=== PATIENT | female | born 1960 | race Two or more races ===

== ENCOUNTER → 2020-03-11 | Day surgery (SDC) | payer OTHER | END | disposition home or self-care (01) | LOC: ADM 03-04 12:00 → AMB-ENDOS 06:00 → ADM 04-04 12:00 | PROVIDERS: ATTEND Colon & Rectal Surgery | DX: D12.3 Benign neoplasm of transverse colon (principal); K64.2 Third degree hemorrhoids; Z20.828 Contact with and (suspected) exposure to other viral communicable diseases ==

== ENCOUNTER 2021-10-05 11:30 | Outpatient (CLI) | payer OTHER | END 2021-10-05 12:00 | disposition home or self-care (01) | LOC: MRI 11:30 | DX: G95.9 Disease of spinal cord, unspecified (principal); S32.009A Unspecified fracture of unspecified lumbar vertebra, initial encounter for closed fracture | CPT/HCPCS: 72148 ==

== ENCOUNTER 2021-11-15 10:11 | Inpatient (IN) | payer OTHER ==
[~2021-11-15] VITALS: Ht 165.1 cm; Wt 66.7 kg
[2021-11-15] MEDS ORDERED: TOPROL XL50 M1 PO (11:05)
[2021-11-15] MEDS ORDERED: SYNTHROID50 MCG PO (11:05)
== END 2021-11-17 10:24 | disposition home or self-care (01) | DRG 742 ==
LOC: OB/GYN 11-16 05:46 → O/R 11-16 05:46 → SURG 11-16 11:15 → OB/GYN 11-16 15:23
PROVIDERS: Surgery; ADMIT Obstetrics & Gynecology Gynecologic Oncology; ATTEND Obstetrics & Gynecology Gynecologic Oncology
PROC: 0UT24ZZ Resection of Bilateral Ovaries, Percutaneous Endoscopic Approach (ICD-10-PCS; 2021-11-16)
PROC: 07BC4ZZ Excision of Pelvis Lymphatic, Percutaneous Endoscopic Approach (ICD-10-PCS; 2021-11-16)
PROC: 0DTJ4ZZ Resection of Appendix, Percutaneous Endoscopic Approach (ICD-10-PCS; 2021-11-16)
PROC: 0UT94ZZ Resection of Uterus, Percutaneous Endoscopic Approach (ICD-10-PCS; principal; 2021-11-16 11:15)
PROC: 0UT74ZZ Resection of Bilateral Fallopian Tubes, Percutaneous Endoscopic Approach (ICD-10-PCS; 2021-11-16 11:15)
DX: N80.0 Endometriosis of uterus (principal); K35.890 Other acute appendicitis without perforation or gangrene; Z20.822 Contact with and (suspected) exposure to COVID-19; N83.291 Other ovarian cyst, right side; N83.292 Other ovarian cyst, left side

== ENCOUNTER 2025-04-05 09:40 | Emergency (ER) | payer OTHER ==
[~2025-04-05] VITALS: Ht 165.1 cm; Wt 58.1 kg
[~2025-04-05 09:40] MED LIST: SYNTHROID50 MCG PO; TOPROL XL50 M1 PO
[2025-04-05] MEDS ORDERED: ACETAMINOPHEN 500 MG GEL..CAP PO ONE (13:45)
[2025-04-05] MEDS ORDERED: DEXAMETHASONE SODIUM PHOSPHATE 4 MG/ML VIAL IV ONE (13:45)
[2025-04-05] MEDS ORDERED: 0.9 % SODIUM CHLORIDE 1,000 ML IV SCH (13:45)
[2025-04-05] MEDS ORDERED: FAMOTIDINE/PF 20 MG/2 ML VIAL IV ONE (13:45)
[2025-04-05 14:16] LABS: BASO % 0.5 % (0.1-1.2); EOS # 0.19 (0.04-0.54); EOS % 2.6 % (0.7-7.0); LYMPH # 1.01 (1.18-3.74); LYMPH % 13.7 % (19.3-53.1); MEAN PLATELET VOLUME 11.60 fl (9.4-12.4); MONO # 0.48 (0.24-0.82); MONO % 6.5 % (4.7-12.5); NEUT # 5.61 (1.56-6.13); NEUT % 76.2 % (34.0-71.1); RED CELL DISTRIBUTION WIDTH 11.5 % (11.6-14.4)
[2025-04-05 14:26] LABS: ERYTHROCYTE SEDIMENTATION RATE 40 mm/hr (0-30)
[2025-04-05 14:47] LABS: INR 1.04
[2025-04-05 15:28] LABS: ALT/SGPT 33.0 U/L (12-78); AST/SGOT 20.0 U/L (15-37); BILIRUBIN TOTAL 0.58 mg/dL (0.3-1.2); BUN CREA RATIO 10.0 (7.0-25.0); CREATININE SERUM 0.68 mg/dL (0.55-1.02); GFR 87.39; GLOBULINA 3.8 G/DL (2.4-3.5); GLUCOSE FASTING 81.0 mg/dL (65-100); OSMOLALITY SERUM 284.0 MOSM/KG (275-295)
== END 2025-04-05 19:37 | disposition home or self-care (01) ==
LOC: ER 09:41
PROVIDERS: Student in an Organized Health Care Education/Training Program
DX: K66.8 Other specified disorders of peritoneum (principal); E03.9 Hypothyroidism, unspecified; I10 Essential (primary) hypertension; Z85.42 Personal history of malignant neoplasm of other parts of uterus